=== PATIENT | male | born 1945 | race Hispanic/Latino ===

== ENCOUNTER 2019-02-21 08:30 | Emergency (ER) | payer OTHER ==
[2019-02-21] MEDS ORDERED: ONDANSETRON 4 MG (ODT) TAB ONE (10:27)
[2019-02-21] MEDS ORDERED: FENTANYL CITR 100 MCG/2 ML ONE (10:27)
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
== END 2019-02-21 11:36 | disposition home or self-care (01) ==
LOC: ER 08:30
DX: S22.49XA Multiple fractures of ribs, unspecified side, initial encounter for closed fracture (principal); V29.9XXA Motorcycle rider (driver) (passenger) injured in unspecified traffic accident, initial encounter; Z88.0 Allergy status to penicillin; Z88.2 Allergy status to sulfonamides; I10 Essential (primary) hypertension; F17.210 Nicotine dependence, cigarettes, uncomplicated
CPT/HCPCS: 96374; 99283; J3010